=== PATIENT | female | born 1985 | race African-American/Black ===

== ENCOUNTER 2019-11-20 07:01 | Emergency (ER) | payer SELFPAY ==
[~2019-11-20] VITALS: Ht 167.6 cm; Wt 63.5 kg
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
[2019-11-20] MEDS ORDERED: DiphenhydrAMINE 50mg/ml Inj IM ONE (07:30)
[2019-11-20] MEDS ORDERED: Haloperidol 5mg/ml Inj IM ONE (07:30)
--- NOTE | 2019-11-20 07:30 | NUR ---
ED Nurse Note: Haldol and Benadryl administered per ED MD order.
--- NOTE | 2019-11-20 07:44 | NUR ---
ED Nurse Note: Pt more calm in bed now. Attached pt to monitor and vitals are stable as documented. Respirations even and unlabored on room air. Pt sleeping.
[2019-11-20 07:49] VITALS: BP 124/69
--- NOTE | 2019-11-20 08:00 | NUR ---
ED Nurse Note: Blood drawn and sent to lab
[2019-11-20 08:07] LABS: BASOPHILS % (AUTO) 0.6 % (0.0-2.0); EOSINOPHILS % (AUTO) 1.1 % (0.0-3.0); HEMATOCRIT 34.8 % (37.0-47.0); HEMOGLOBIN 12.2 G/DL (12.0-16.0); LYMPHOCYTES % (AUTO) 22.3 % (20.0-45.0); MEAN CORPUSCULAR VOLUME 87 FL (80-99); MONOCYTES % (AUTO) 7.9 % (1.0-10.0); NEUTROPHILS % (AUTO) 68.1 % (45.0-75.0); PLATELET COUNT 174 K/UL (150-450); RED CELL DISTRIBUTION WIDTH 12.4 % (11.6-14.8); WHITE BLOOD COUNT 5.3 K/UL (4.8-10.8)
--- NOTE | 2019-11-20 08:15 | NUR ---
ED Nurse Note: Attempted to straight cath for urine sample, but pt refuses to be touched. Pt will not turn on her back, nor will she open her legs. ED MD aware.
[2019-11-20 08:16] LABS: ANION GAP 8 mmol/L (5-15); BLOOD UREA NITROGEN 18 mg/dL (7-18); CARBON DIOXIDE 26 MMOL/L (21-32); CHLORIDE 109 MMOL/L (98-107); CREATININE 0.9 MG/DL (0.55-1.30); POTASSIUM 3.6 MMOL/L (3.5-5.1); SODIUM 143 MMOL/L (136-145)
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
[2019-11-20 08:27] LABS: ALANINE AMINOTRANSFERASE 29 U/L (12-78); ALBUMIN 3.7 G/DL (3.4-5.0); ALBUMIN/GLOBULIN RATIO 1.1 (1.0-2.7); ALKALINE PHOSPHATASE 67 U/L (46-116); ASPARTATE AMINO TRANSFERASE 27 U/L (15-37); BILIRUBIN,TOTAL 1.7 MG/DL (0.2-1.0)
[2019-11-20 08:33] LABS: BILIRUBIN,DIRECT 0.2 MG/DL (0.0-0.3)
--- NOTE | 2019-11-20 09:10 | NUR ---
ED Nurse Note: Report given to Jess Quiroz RN
[2019-11-20 09:20] VITALS: BP 133/70
--- NOTE | 2019-11-20 10:28 | NUR ---
ED Nurse Note: PT SLEEPING ON BED WITH NO DISTRESS AT THIS TIME. SIDE RAILS ARE UP FOR SAFETY PRECAUTIONS.
[2019-11-20 11:30] VITALS: BP 128/77
--- NOTE | 2019-11-20 12:30 | NUR ---
ED Nurse Note: PT ATE HER SANDWICH 100% CONSUMED AND THEN WENT BACK TO SLEP AGAIN.
--- NOTE | 2019-11-20 13:16 | NUR ---
ED Nurse Note: COLLECTED URINE THEN SENT.
[2019-11-20 13:24] LABS: APPEARANCE,URINE SLIGHTLY CLOUDY; BILIRUBIN, URINE NEGATIVE (NEGATIVE); COLOR,URINE BROWN; GLUCOSE, URINE (UA) NEGATIVE (NEGATIVE); KETONES,URINE 2+ (NEGATIVE); LEUKOCYTE ESTERASE ,URINE 1+ (NEGATIVE); NITRITE,URINE POSITIVE (NEGATIVE); PH,URINE 6 (4.5-8.0); PROTEIN,URINE NEGATIVE (NEGATIVE); UROBILINOGEN,URINE 8 MG/DL (0.0-1.0)
[2019-11-20 13:25] VITALS: BP 134/68
--- NOTE | 2019-11-20 14:20 | NUR ---
ED Nurse Note: REPLENISHMENT ANALYST DENY AT THE BED SIDE.
[2019-11-20 15:35] VITALS: BP 132/70
--- NOTE | 2019-11-20 16:32 | NUR ---
ED Nurse Note: PT IS MORE AWAKE AND ALERT AT THIS TIME. SANDWICH AND WATER WERE PROVIDED.
--- NOTE | 2019-11-20 16:37 | NUR ---
AIRPLANE AND ENGINE INSPECTOR NOTE ASHISH communicated w/ pt in writing. Pt identified herself as deaf and mute. Pt's name is Carol Garcia, 1985, 34 y/o. Pt's address is [address] [place] [address], [place] [address]. Pt did not identify whom she resides with. Pt states her family member Estrella [phone], , and provide transportation upon DC. Pt was able to express and communicate her needs. Signed: 11/20/19 at 1641 by DENY HINOJOSA <Co-Signature Required>
[2019-11-20] MEDS ORDERED: CEPHALEXIN500 M1 ORAL (17:03)
[2019-11-20 17:24] VITALS: BP 127/80
--- NOTE | 2019-11-20 17:24 | NUR ---
ER DISCHARGE NOTE: Patient is cleared to be discharged per ERMD, pt is aox4, on room air, with stable vital signs. pt was given dc and prescription instructions, pt was able to verbalize understanding, pt id band and iv site removed without complications. pt is able to ambulate with steady gait. pt took all belongings.
== END 2019-11-20 17:24 | disposition home or self-care (01) ==
LOC: EDBD 07:01 → EMR 07:10 → EDBD 07:10 → EMR 17:24
DX: R40.4 Transient alteration of awareness (principal); N30.00 Acute cystitis without hematuria; F12.10 Cannabis abuse, uncomplicated
CPT/HCPCS: 36415; 80053; 80307; 81003; 81025; 82248; 85025; 87086; 87181; 96361; 96372; 99284; G0480; J1200; J1630; J7030